=== PATIENT | male | born 1985 | race African-American/Black ===

== ENCOUNTER 2018-07-23 22:10 | Emergency (ER) | payer MEDICAID ==
[~2018-07-23] VITALS: Ht 170.2 cm; Wt 66.7 kg
--- NOTE | 2018-07-23 22:14 | NUR ---
ED Nurse Note: pt was not on the waiting room when called,
[2018-07-23] MEDS ORDERED: BENZTROPINE ME0.5 MG PO (22:30)
[2018-07-23] MEDS ORDERED: GEODON20 MG ORAL (22:30)
[2018-07-23 22:35] VITALS: BP 122/74
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
[2018-07-23] MEDS ORDERED: Tetanus/Diptheria/Pertussis Vaccine 0.5ml Syr IM ONE (22:45)
[2018-07-23] MEDS ORDERED: IBUPROFEN600 MG ORAL (23:00)
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
[2018-07-23 23:12] VITALS: BP 129/76
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
== END 2018-07-23 23:12 | disposition home or self-care (01) ==
LOC: EMR 22:45
DX: S01.81XA Laceration without foreign body of other part of head, initial encounter (principal); Y04.2XXA Assault by strike against or bumped into by another person, initial encounter; Y92.89 Other specified places as the place of occurrence of the external cause; Z23 Encounter for immunization
CPT/HCPCS: 12011; 90471; 90715; 99282; Z7502